=== PATIENT | female | born 1995 | race American Indian/Alaskan Native ===

== ENCOUNTER 2021-09-22 04:20 | Emergency (ER) | payer OTHER ==
[2021-09-22 04:33] VITALS: BP 117/59
[2021-09-22] MEDS ORDERED: IBUPROFEN 800 MG TAB PO NR (04:44)
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
== END 2021-09-22 05:52 ==
LOC: ED 04:20
DX: S62.645A Nondisplaced fracture of proximal phalanx of left ring finger, initial encounter for closed fracture (principal); M25.552 Pain in left hip; V48.5XXA Car driver injured in noncollision transport accident in traffic accident, initial encounter; W22.10XA Striking against or struck by unspecified automobile airbag, initial encounter; Y92.488 Other paved roadways as the place of occurrence of the external cause; Y93.89 Activity, other specified; Y99.8 Other external cause status